=== PATIENT | female | born 1965 | race Two or more races ===

== ENCOUNTER 2016-05-01 19:42 | Emergency (ER) | payer OTHER ==
[2016-05-01 22:20] LABS: SPECIFIC GRAVITY 1.015 (1.001-1.030); URINE BILIRUBIN NEGATIVE (NEGATIVE); URINE BLOOD 1+ (NEGATIVE); URINE GLUCOSE (UA) NEGATIVE (NEGATIVE); URINE LEUKOCYTE ESTERASE 1+ (NEGATIVE); URINE NITRITE NEGATIVE (NEGATIVE); URINE PROTEIN NEGATIVE (NEGATIVE); URINE UROBILINOGEN NORMAL (0-1 mg/dl)
[2016-05-01 22:31] LABS: HCG,QUALITATIVE URINE NEGATIVE
[2016-05-01 22:32] LABS: URINE APPEARANCE CLEAR; URINE COLOR YELLOW
[2016-05-01 22:40] LABS: URINE BACTERIA RARE
[2016-05-01] MEDS ORDERED: IBUPROFEN 600 MG TABLET ONE (22:43)
[2016-05-01] MEDS ORDERED: HYDROCODONE/ACETAMINOPHEN 5/325MG TABLET ONE (23:17)
[2016-05-01] MEDS ORDERED: CEFTRIAXONE SODIUM 1 G VIAL ONE (23:17)
== END 2016-05-01 23:42 | disposition home or self-care (01) ==
LOC: ED 19:42
DX: N12 Tubulo-interstitial nephritis, not specified as acute or chronic (principal); B97.89 Other viral agents as the cause of diseases classified elsewhere
CPT/HCPCS: 81025; 87086; 81001; 87804; 99283 ×2; 96372; A9270 ×2; J0696